=== PATIENT | male | born 1970 | race Caucasian/White ===

== ENCOUNTER 2018-07-09 18:25 | Emergency (ER) | payer MEDICARE, MEDICAID ==
[~2018-07-09] VITALS: Ht 180.3 cm; Wt 82.0 kg
[~2018-07-09 18:25] MED LIST: BUPR75TA12 PO; HYDR-4383 PO; LOSA50TA64 PO; PALI3TAB5 PO
--- NOTE | 2018-07-09 19:38 | NUR ---
lidocaine injected to buttock wound. ankur lucia requests anoscope set up and irrigation wtih 500 cc's. pt will not need suturing.
[2018-07-09] MEDS ORDERED: HYDROcodone/acetaminophen 5mg/325mg tablet PO ONE (19:45)
[2018-07-09] MEDS ORDERED: TETanus/Pertussis (Acell)/Diphther VAC/PF (Tdap-Adult) 0.5ml syringe IM ONE (19:45)
[2018-07-09] MEDS ORDERED: LIDOcaine 4% (40 mg/ml) topical solution 50ml TP ONE (19:45)
--- NOTE | 2018-07-09 20:13 | NUR ---
LEONARD DUMAS EVALUATING WITH ANOSCOPE, I WAS AT BEDSIDE CHAPARONE AND MOTHER AT BEDSIDE. PT WITH STABLE VS.
[2018-07-09 20:14] VITALS: BP 144/107
[2018-07-09] MEDS ORDERED: CEPH-572 PO (20:52)
[2018-07-09] MEDS ORDERED: HYDR-3965 PO (20:56)
== END 2018-07-09 21:06 | disposition home or self-care (01) ==
LOC: ER 18:25
DX: S31.831A Laceration without foreign body of anus, initial encounter (principal); F12.90 Cannabis use, unspecified, uncomplicated; F15.90 Other stimulant use, unspecified, uncomplicated; Z59.0 Homelessness; Z79.2 Long term (current) use of antibiotics; Z79.899 Other long term (current) drug therapy; W18.39XA Other fall on same level, initial encounter; Y93.89 Activity, other specified; Y92.89 Other specified places as the place of occurrence of the external cause; Y99.8 Other external cause status
CPT/HCPCS: 90471; 90715; 99284

== ENCOUNTER 2018-08-20 17:24 | Emergency (ER) | payer MEDICARE, MEDICAID ==
[~2018-08-20] VITALS: Ht 185.4 cm; Wt 85.3 kg
[2018-08-20 19:53] VITALS: BP 207/123
--- NOTE | 2018-08-20 19:54 | NUR ---
pt up to the bathroom to void. no difficulty ambulating. no needs at this time. explained ER is busy and apoligized for long wait time
[2018-08-20] MEDS ORDERED: TRAM50TA2 PO (20:27)
[2018-08-20] MEDS ORDERED: AMOX-422 PO (20:27)
[2018-08-20] MEDS ORDERED: NAPR-56 PO (20:27)
[2018-08-20] MEDS ORDERED: amox tr/potassium clavulanate 875/125mg TAB PO ONE (20:30)
[2018-08-20] MEDS ORDERED: traMADol 50MG tablet PO ONE (20:30)
[2018-08-20] MEDS ORDERED: naproxen 500mg tablet PO ONE (20:30)
== END 2018-08-20 20:44 | disposition home or self-care (01) ==
LOC: ER 17:25
DX: K04.7 Periapical abscess without sinus (principal); L02.512 Cutaneous abscess of left hand; K02.9 Dental caries, unspecified; F17.200 Nicotine dependence, unspecified, uncomplicated; F12.90 Cannabis use, unspecified, uncomplicated; F15.90 Other stimulant use, unspecified, uncomplicated; Z71.6 Tobacco abuse counseling; Z59.0 Homelessness; Z79.2 Long term (current) use of antibiotics; Z79.899 Other long term (current) drug therapy; Z90.5 Acquired absence of kidney
CPT/HCPCS: 99284

== ENCOUNTER 2018-09-17 13:33 | Emergency (ER) | payer MEDICARE, MEDICAID ==
[~2018-09-17] VITALS: Ht 188 cm; Wt 86.4 kg
[~2018-09-17 13:33] MED LIST changes: +NAPR-56 PO; +TRAM50TA2 PO
[2018-09-17 13:58] VITALS: BP 163/97
[2018-09-17] MEDS ORDERED: ibuprofen tablet 400 MG TABLET PO ONE (15:20)
== END 2018-09-17 15:35 | disposition home or self-care (01) ==
LOC: ER 13:33
DX: M25.531 Pain in right wrist (principal); F12.90 Cannabis use, unspecified, uncomplicated; F15.90 Other stimulant use, unspecified, uncomplicated; Z59.0 Homelessness; Z98.890 Other specified postprocedural states; Z79.899 Other long term (current) drug therapy; V19.9XXA Pedal cyclist (driver) (passenger) injured in unspecified traffic accident, initial encounter; Y93.89 Activity, other specified; Y92.89 Other specified places as the place of occurrence of the external cause; Y99.8 Other external cause status
CPT/HCPCS: 29125; 73110; 99283

== ENCOUNTER 2018-10-01 12:16 | Emergency (ER) | payer MEDICARE, MEDICAID ==
[~2018-10-01] VITALS: Ht 177.8 cm; Wt 81.8 kg
[~2018-10-01 12:16] MED LIST changes: -NAPR-56 PO; -TRAM50TA2 PO
[2018-10-01 12:38] VITALS: BP 150/89
[2018-10-01] MEDS ORDERED: HYDR-4383 PO (14:01)
[2018-10-01] MEDS ORDERED: IBUP-1984 PO (14:01)
[2018-10-01] MEDS ORDERED: CLIN150C2 PO (14:01)
== END 2018-10-01 14:28 | disposition home or self-care (01) ==
LOC: ER 12:17
DX: S02.5XXA Fracture of tooth (traumatic), initial encounter for closed fracture (principal); K04.7 Periapical abscess without sinus; F12.90 Cannabis use, unspecified, uncomplicated; F15.90 Other stimulant use, unspecified, uncomplicated; Z59.0 Homelessness; Z98.890 Other specified postprocedural states; Z79.2 Long term (current) use of antibiotics; Z79.899 Other long term (current) drug therapy; X58.XXXA Exposure to other specified factors, initial encounter; Y93.89 Activity, other specified; Y92.89 Other specified places as the place of occurrence of the external cause; Y99.8 Other external cause status
CPT/HCPCS: 99283

== ENCOUNTER 2018-10-03 10:25 | Emergency (ER) | payer MEDICARE, MEDICAID ==
[~2018-10-03] VITALS: Ht 180.3 cm; Wt 72.0 kg
[~2018-10-03 10:25] MED LIST changes: +CLIN150C2 PO; +IBUP-1984 PO
[2018-10-03 10:26] VITALS: BP 153/91
== END 2018-10-03 11:36 | disposition home or self-care (01) ==
LOC: ER 10:25
DX: K04.7 Periapical abscess without sinus (principal); Z48.00 Encounter for change or removal of nonsurgical wound dressing; C7A.00 Malignant carcinoid tumor of unspecified site; F12.90 Cannabis use, unspecified, uncomplicated; F15.90 Other stimulant use, unspecified, uncomplicated; Z87.891 Personal history of nicotine dependence; Z59.0 Homelessness; Z79.2 Long term (current) use of antibiotics; Z79.899 Other long term (current) drug therapy
CPT/HCPCS: 99281

== ENCOUNTER 2019-07-22 16:37 | Emergency (ER) | payer MEDICARE, MEDICAID ==
[~2019-07-22] VITALS: Ht 182.9 cm; Wt 180.0 kg
[~2019-07-22 16:37] MED LIST changes: -CLIN150C2 PO; -IBUP-1984 PO
--- NOTE | 2019-07-22 16:59 | NUR ---
PT MOM WILL PICK HIM UP AFTER DC [phone] (CELL) [phone] (HOME)
[2019-07-22] MEDS ORDERED: TETanus/Pertussis (Acell)/Diphther VAC/PF (Tdap-Adult) 0.5ml syringe IMVAC ONE (17:25)
--- NOTE | 2019-07-22 17:36 | NUR ---
wound cleaned, dermabond at bedside, tetnus shot given
--- NOTE | 2019-07-22 17:52 | NUR ---
LEFT MESSAGE THAT SON WAS READY TO BE PICKED UP
[2019-07-22 17:53] VITALS: BP 150/99
== END 2019-07-22 18:37 | disposition home or self-care (01) ==
LOC: ER 16:38
DX: S91.311A Laceration without foreign body, right foot, initial encounter (principal); F12.90 Cannabis use, unspecified, uncomplicated; F15.90 Other stimulant use, unspecified, uncomplicated; Z98.890 Other specified postprocedural states; Z72.89 Other problems related to lifestyle; Z60.2 Problems related to living alone; Z59.0 Homelessness; Z79.899 Other long term (current) drug therapy; X58.XXXA Exposure to other specified factors, initial encounter; Y93.A3 Activity, aerobic and step exercise; Y92.89 Other specified places as the place of occurrence of the external cause; Y99.8 Other external cause status
CPT/HCPCS: 12002; 90471; 90715; 99283

== ENCOUNTER 2019-10-25 07:57 | Emergency (ER) | payer MEDICARE, MEDICAID ==
[~2019-10-25] VITALS: Ht 180.3 cm; Wt 80.0 kg
[2019-10-25 08:01] VITALS: BP 176/96
[2019-10-25] MEDS ORDERED: TETanus/Pertussis (Acell)/Diphther VAC/PF (Tdap-Adult) 0.5ml syringe IMVAC ONE (08:10)
[2019-10-25] MEDS ORDERED: SULF1TAB49 PO ×2 (08:42→09:02)
[2019-10-25] MEDS ORDERED: CEPH-572 PO ×2 (08:42→09:02)
[2019-10-25] MEDS ORDERED: cephalexin 250mg capsule PO ONE (08:45)
[2019-10-25] MEDS ORDERED: sulfamethoxazole/trimethoprim DS (800/160mg) tablet PO ONE (08:45)
[2019-10-25] MEDS ORDERED: bacitracin 15gm ointment TP ONE (08:50)
[2019-10-26] MEDS ORDERED: MUPI22OI30 TOP (15:33)
== END 2019-10-25 10:21 | disposition home or self-care (01) ==
LOC: ER 07:58
DX: L03.113 Cellulitis of right upper limb (principal); F12.90 Cannabis use, unspecified, uncomplicated; F15.90 Other stimulant use, unspecified, uncomplicated; Z98.890 Other specified postprocedural states; Z72.89 Other problems related to lifestyle; Z60.2 Problems related to living alone; Z59.0 Homelessness; Z79.2 Long term (current) use of antibiotics; Z79.899 Other long term (current) drug therapy
CPT/HCPCS: 90471; 90715; 99284

== ENCOUNTER 2019-10-26 14:13 | Emergency (ER) | payer MEDICARE, MEDICAID ==
[~2019-10-26] VITALS: Ht 180.3 cm; Wt 78.0 kg
[~2019-10-26 14:13] MED LIST changes: +CEPH-572 PO; +SULF1TAB49 PO
[2019-10-26 14:34] VITALS: BP_SYST 138
[2019-10-26] MEDS ORDERED: MUPI22OI30 TOP (15:33)
== END 2019-10-26 15:48 | disposition home or self-care (01) ==
LOC: ER 14:14
DX: F22 Delusional disorders (principal); M25.421 Effusion, right elbow; F12.90 Cannabis use, unspecified, uncomplicated; F15.90 Other stimulant use, unspecified, uncomplicated; Z98.890 Other specified postprocedural states; Z72.89 Other problems related to lifestyle; Z60.2 Problems related to living alone; Z59.0 Homelessness; Z79.2 Long term (current) use of antibiotics; Z79.899 Other long term (current) drug therapy
CPT/HCPCS: 99283

== ENCOUNTER 2020-07-28 13:34 | Emergency (ER) | payer MEDICARE, MEDICAID ==
[~2020-07-28] VITALS: Ht 182.9 cm; Wt 78.0 kg
[2020-07-28 13:41] VITALS: BP 155/102
--- NOTE | 2020-07-28 13:45 | NUR ---
PATIENT VERY LOUD AND YELLING "GIVE ME BAKING SODA" REPEATEDLY, REFUSING ORAL TEMP.
[2020-07-28] MEDS ORDERED: mupirocin 2% cream 15gm TP STA (14:07)
[2020-07-28] MEDS ORDERED: normal saline 1000ml 1,000 ML IV ONE ×2 (14:10)
--- NOTE | 2020-07-28 14:25 | NUR ---
PATIENT REFUSING EKG
[2020-07-28] MEDS ORDERED: mupirocin 2% ointment 22GM TP STA (14:41)
[2020-07-28 15:23] LABS: ALANINE AMINOTRANSFERASE 54 U/L (12-78); ALBUMIN 3.4 G/DL (3.4-5.0); ALBUMIN/GLOBULIN RATIO 0.9 (1.1-1.5); ALKALINE PHOSPHATASE 86 IU/L (46-116); ANION GAP 8 (8-16); ASPARTATE AMINO TRANSFERASE 46 U/L (10-37); BILIRUBIN,TOTAL 0.4 MG/DL (0.1-1.0); BLOOD UREA NITROGEN 22 MG/DL (7-18); BUN/CREATININE RATIO 16.5 (5.4-32.0); CALCIUM 7.9 MG/DL (8.5-10.1); CHLORIDE 108 MMOL/L (99-107); CREATININE 1.33 MG/DL (0.60-1.10); GLUCOSE 80 MG/DL (70-104); POTASSIUM 3.8 MMOL/L (3.5-5.1); SODIUM 142 MMOL/L (135-145); TOTAL CARBON DIOXIDE 26.2 MMOL/L (24-32); TOTAL PROTEIN 7.2 G/DL (6.4-8.2); eGFR 57 ML/MIN
== END 2020-07-28 17:28 | disposition home or self-care (01) ==
LOC: ER 13:34
DX: T22.212A Burn of second degree of left forearm, initial encounter (principal); T22.211A Burn of second degree of right forearm, initial encounter; F19.10 Other psychoactive substance abuse, uncomplicated; R94.4 Abnormal results of kidney function studies; Z87.81 Personal history of (healed) traumatic fracture; Z90.5 Acquired absence of kidney; Z59.0 Homelessness; Z85.9 Personal history of malignant neoplasm, unspecified; Z79.2 Long term (current) use of antibiotics; Z79.899 Other long term (current) drug therapy; X97.XXXA Assault by smoke, fire and flames, initial encounter; Y93.89 Activity, other specified; Y92.481 Parking lot as the place of occurrence of the external cause; Y99.8 Other external cause status
CPT/HCPCS: 16000; 36415; 71045; 80053; 96360; 96361; 99284; J7030